=== PATIENT | male | born 1985 | race Caucasian/White ===

== ENCOUNTER 2017-04-30 10:33 | Emergency (ER) | payer MEDICARE, OTHER ==
[~2017-04-30 10:33] MED LIST: ALPR.25 PO; AUGM875T PO; LATU40TA PO; LORTA5 PO; PYRI200T4 PO
--- NOTE | 2017-05-01 08:22 | EP ---
cc: PRIETO FLOREZ. HISTORY A 31-year-old male presents to the emergency department for evaluation of right ear pain times five days. The patient reports a history of previous abscesses within the right and left ear canal. He is denying fever or chills. He denies drainage from the ear. He denies headache, nausea, vomiting. He reports pain as constant, throbbing, non radiating. Severity 4/10. PHYSICAL EXAMINATION HEENT: On examination the patient has small fluctuant abscess within the external right ear canal. The tympanic membrane is intact. There is no perforation. There was no drainage. There is no surrounding cellulitis of the ear. There is no mastoid tenderness. His head is normocephalic, atraumatic. NECK: Supple. No lymphadenopathy. HEART: Regular rate and rhythm. LUNGS: Sounds are clear to auscultation bilaterally. No wheezes, rhonchi or rales. PROCEDURE The area was prepped with Betadine, a small amount of 1% lidocaine without epinephrine infiltrated into the area. A 2 mm incision made and drainage expressed from the abscess in the ear. The patient tolerated the procedure well. ASSESSMENT Right ear abscess. The patient will be discharged home with Clindamycin, instructed to follow up with ear, nose, and throat. Return precautions discussed. The patient verbalizes understanding and agrees to plan. HAL Grigsby/KK /11:29 AM /8:18 AM
== END 2017-04-30 11:38 | disposition home or self-care (01) ==
LOC: PHED 10:33
DX: H60.01 Abscess of right external ear (principal)
CPT/HCPCS: 10060